=== PATIENT | male | born 1965 | race Caucasian/White ===

== ENCOUNTER 2020-04-30 10:04 | Emergency (ER) | payer BC ==
[2020-04-30] MEDS ORDERED: PERCOCET 325 MG1 TAB PO (10:15)
[2020-04-30 11:52] VITALS: BP 168/99
[2020-04-30] MEDS ORDERED: PERCOCET 325 MG1 TA5 PO (12:00)
[2020-04-30] MEDS ORDERED: AMBIEN5 M1 PO (12:00)
== END 2020-04-30 12:03 | disposition home or self-care (01) ==
LOC: ED 10:04
DX: M54.5 Low back pain (principal); I10 Essential (primary) hypertension; M79.18 Myalgia, other site
CPT/HCPCS: J1885; J2360

== ENCOUNTER → 2020-05-27 | Outpatient (CLI) | payer BC ==
[2020-04-30 11:52] VITALS: BP 168/99
[~2020-05-27] MED LIST: AMBIEN5 M1 PO; PERCOCET 325 MG1 TA5 PO; PERCOCET 325 MG1 TAB PO
[2020-05-27 07:52] LABS: POTASSIUM 3.5 mmol/L (3.5-5.1)
[2020-05-27 07:53] LABS: ALBUMIN 4.2 g/dL (3.5-5.0)
[2020-05-27 07:57] LABS: TOTAL BILIRUBIN 0.6 mg/dL (0.2-1.2)
[2020-05-27 08:28] LABS: EOS # 0.2 (0.04-0.40); EOS % 2.2 % (0.0-4.0); HEMATOCRIT 49.7 % (42.0-52.0); HEMOGLOBIN 17.7 g/dL (13.5-18.0); LYMPH# 2.4 (1.50-4.00); MEAN CELL VOLUME 90 fl (78-100); MEAN CORPUSCULAR HEMOGLOBIN 32 pg (27-31); MEAN CORPUSCULAR HGB CONC 36 g/dL (33-37); MEAN PLATELET VOLUME 9.4 fl (7.4-10.4); MONO # 0.7 (0.20-0.80); NEU # 5.2 (1.40-6.50); PLATELET COUNT 261 K/mm3 (130-400); RED BLOOD COUNT 5.55 M/mm3 (4.20-5.60); RED CELL DISTRIBUTION WIDTH 12.4 % (11.5-14.5); WHITE BLOOD COUNT 8.5 K/mm3 (4.8-10.8)
== END ==
LOC: LAB 07:26
PROVIDERS: Family Medicine
DX: Z00.00 Encounter for general adult medical examination without abnormal findings (principal); R73.9 Hyperglycemia, unspecified; E78.5 Hyperlipidemia, unspecified

== ENCOUNTER → 2020-05-29 | Outpatient (CLI) | payer BC ==
[2020-04-30 11:52] VITALS: BP 168/99
== END ==
LOC: RAD 15:19
DX: M48.062 Spinal stenosis, lumbar region with neurogenic claudication (principal)

== ENCOUNTER → 2021-03-03 | Outpatient (CLI) | payer SELFPAY | LOC: RAD 08:59 | DX: R05.3 Chronic cough (principal) ==

== ENCOUNTER → 2021-05-19 | Emergency (ER) | payer OTHER ==
[~2021-05-19] VITALS: Ht 177.8 cm; Wt 100.7 kg
[2021-05-19 17:04] VITALS: BP 169/110
== END ==
LOC: ED 16:45
DX: U07.1 COVID-19 (principal); I10 Essential (primary) hypertension; Z53.20 Procedure and treatment not carried out because of patient's decision for unspecified reasons

== ENCOUNTER 2021-08-10 08:45 | Outpatient (RCR) | payer SELFPAY | END 2021-08-10 17:00 | disposition still patient (30) | LOC: PT 08:45 | DX: M47.896 Other spondylosis, lumbar region (principal) ==